=== PATIENT | female | born 1970 | race Hispanic/Latino ===

== ENCOUNTER → 2018-02-01 | Outpatient (CLI) | payer OTHER ==
--- NOTE | 2018-02-01 13:35 | Diagnostic Imaging Report ---
PROCEDURE:THORACIC SP 3V COMPARISON:None. INDICATIONS:BACK PAIN CHRONIC FINDINGS: Alignment is maintained on AP view. No vertebral body compression. No compression or subluxation suggested on lateral views. Mild degenerative changes of the mid-thoracic spine. Cervicothoracic junction is normal in appearance. IMPRESSION: No gross abnormalities appreciated involving the thoracic spine. Dictated by: Min Russell M.D. on 02/01/2018 at 13:41 Electronically approved by: Min Russell M.D. on 02/01/2018 at 13:41
== END ==
LOC: RAD 12:17
PROVIDERS: ATTEND Family Medicine
DX: M54.6 Pain in thoracic spine (principal)
CPT/HCPCS: 72072

== ENCOUNTER → 2018-02-08 | Outpatient (CLI) | payer OTHER ==
--- NOTE | 2018-02-08 11:14 | Diagnostic Imaging Report ---
PROCEDURE:ABDOMINAL ULTRASOUND COMPARISON:None. INDICATIONS:ABDOMEN PAIN TECHNIQUE: Rahman-scale and color sonographic images were obtained of the abdomen in transverse and sagittal planes. FINDINGS: Liver: 14.3 cm in length in right midclavicular line. Normal echogenicity. No masses. Main portal vein: 0.8 cm in caliber, hepatopetal flow Gallbladder: No stones or sludge. No wall thickening or pericholecystic fluid. Common Bile Duct: 0.4 cm, no dilatation. Sonographic Gomez's sign: Negative Right kidney: 11.6 cm in length Left kidney: 10.9 cm in length. Bilateral renal pelviectasis, right greater than left. No stones or solid mass. Spleen: 8.5 cm in length Pancreas: The visualized portions are unremarkable. Inferior vena cava: Patent Aorta: Within normal limits Ascites: None CONCLUSION: Mild pelviectasis of both kidneys, right greater than left. If there is concern for urinary obstruction, consider CT of the abdomen and pelvis. Otherwise normal abdominal ultrasound. Dictated by: Sloan Clemons M.D. on 02/08/2018 at 11:20 Electronically approved by: Sloan Clemons M.D. on 02/08/2018 at 11:20
== END ==
LOC: US 08:56
PROVIDERS: ATTEND Family Medicine
DX: R10.9 Unspecified abdominal pain (principal)
CPT/HCPCS: 76700